=== PATIENT | male | born 1945 | race Caucasian/White ===

== ENCOUNTER 2018-01-13 10:06 | Outpatient (CLI) | payer MEDICARE | END 2018-01-13 10:07 | disposition home or self-care (01) | LOC: BICULT 10:06 | PROVIDERS: ATTEND Internal Medicine Gastroenterology | DX: K63.5 Polyp of colon (principal); K76.0 Fatty (change of) liver, not elsewhere classified; R74.8 Abnormal levels of other serum enzymes; R93.3 Abnormal findings on diagnostic imaging of other parts of digestive tract | CPT/HCPCS: 76705 ==